=== PATIENT | female | born 1975 | race American Indian/Alaskan Native ===

== ENCOUNTER 2016-10-03 19:04 | Emergency (ER) | payer BC ==
[2016-10-03] MEDS ORDERED: DELTASONE PO ONE (22:26)
[2016-10-03] MEDS ORDERED: TYLENOL PO ONE (22:26)
[2016-10-03] MEDS ORDERED: ROBITUSSIN PO ONE (22:26)
--- NOTE | 2016-10-03 22:30 | Emergency Department Report ---
HPI - General Chief Complaint: Upper Respiratory Infection Time Seen by Provider: 10/03/16 21:55 - HPI HPI: 40-year-old female presents ED complaining of throat pain, petechial mucus productive cough and stuffy nose 6 days. Patient states symptoms started 6 days ago and has gotten progressively worse. Patient states she is coughing intermittently day and night. Patient states she had 2 episodes of vomiting 2 days ago from coughing so much. Patient states she sometimes had difficulty breathing through her nose due to stuffy nose. Patient thinks she has had a fever but is unsure if she did not measure. Patient has not taken any medication for symptoms but she states she was recently diagnosed with high blood pressure and takes a blood pressure medication daily cannot recall the name. Patient denies fevers/chills/nausea/vomiting/abdominal pain/chest pain/ shortness of breath/dizziness/headache or any other problems. ED Past Medical Hx - Past Medical History Hx Hypertension: Yes - Surgical History Additional Surgical History: , tubal ligation - Social History Smoking Status: Never Smoker Substance Use Type: None - Medications Home Medications: Home Medications Medication Instructions Recorded Confirmed Last Taken Type Acetamin/Codeine 120-12Mg/5 ml 5 ml PO TID PRN #80 ml 10/03/16 Unknown Rx [Tylenol/Codeine] Azithromycin [Zithromax] 250 mg PO DAILY #6 tablet 10/03/16 Unknown Rx Fluticasone [Flonase] 1 spray NS QDAY #1 bottle 10/03/16 Unknown Rx Prednisone [predniSONE 5 mg (6-Day 5 mg PO .TAPER #1 tab.ds.pk 10/03/16 Unknown Rx Pack, 21 Tabs)] ED Review of Systems ROS: Stated complaint: SORE THROAT/COUGHING/EARACHE/NECK PAIN Other details as noted in HPI Constitutional: denies: chills, fever Eyes: denies: eye pain, eye discharge, vision change ENT: throat pain. denies: ear pain, dental pain, hearing loss Respiratory: cough. denies: shortness of breath, wheezing Cardiovascular: denies: chest pain, palpitations, edema, syncope Endocrine: no symptoms reported Gastrointestinal: denies: abdominal pain, nausea, diarrhea Genitourinary: denies: urgency, dysuria, discharge Musculoskeletal: denies: back pain, joint swelling, arthralgia, myalgia Skin: denies: rash, lesions, pruritus Neurological: denies: headache, weakness, numbness, paresthesias, confusion Psychiatric: denies: anxiety, depression Hematological/Lymphatic: denies: easy bleeding, easy bruising Physical Exam - Physical Exam Vital Signs: Vital Signs 10/03/16 19:15 Temperature 99.1 F Pulse Rate 110 H Respiratory 20 Rate Blood Pressure 161/100 O2 Sat by Pulse 98 Oximetry Physical Exam: GENERAL: Alert and oriented x3, no apparent distress, Normal Gait, atraumatic. Intermittent coughing during exam HEAD: Head is normocephalic and a-traumatic. EYES: Extra ocular muscles are intact. Pupils are equal, round, and reactive to light and accommodation. EARS: symetrical, atraumatic, non tender, ear canal clear and moderate cerumen, tympanic membrance non inflamed. gross auditory nml bilaterally. NOSE: Nose symetrical, Nontender,Nares appeared normal. MOUTH:Mouth is well hydrated and without lesions. Tonsils nonerythematous or swollen, Uvula midline, Tongue elevated. Mucous membranes are moist. Posterior pharynx clear, no exudate or lesions. Patent airways. NECK: Supple. Non edematous, No carotid bruits. Anterior cervical lymphadenopathy. Tender to palpation of cervical lymph nodes. LUNGS: Symetrical with respiration, No wheezing, no rales or crackles, CTAB. HEART: S1, S2 present, regular rate and rhythm without murmur, no rubs, no gallops. ABDOMEN: No organomegaly was noted,Positive bowel sounds, soft, and non- distended. . Nontender to palpation on all Quadrants, NO CVA tenderness. NEUROLOGIC: No focal Deficit, Cranial nerves II through XII are grossly intact. No loss of sensation, SKIN: Warm and dry, No lesions, No ulceration or induration present. ED Course Vital Signs 10/03/16 19:15 Temperature 99.1 F Pulse Rate 110 H Respiratory 20 Rate Blood Pressure 161/100 O2 Sat by Pulse 98 Oximetry ED Medical Decision Making - Medical Decision Making 40-year-old female presents with pharyngitis/upper respiratory infection ED course: Patient received Robitussin, Tylenol and prednisone ED. Patient received clonidine 0.1 to reduce pressure. Discussed with patient had symptomatic relief with medication given for home. Discussed the patient will follow-up with primary care physician. Discussed home antibiotic treatment for 5 days. Discussed if worsening symptoms or new symptoms arise to return to ED. Discussed rest, plenty of fluids, vitamin C. Vital signs are stable. Pressure mildly decreased breath to discharge. Discussed to resume blood pressure meds this morning. Patient is in no acute distress. Critical care attestation.: If time is entered above; I have spent that time in minutes in the direct care of this critically ill patient, excluding procedure time. ED Disposition Clinical Impression: Pharyngitis Qualifiers: Pharyngitis/tonsillitis etiology: unspecified etiology Qualified Code(s): J02.9 - Acute pharyngitis, unspecified URI (upper respiratory infection) Qualifiers: URI type: unspecified URI Qualified Code(s): J06.9 - Acute upper respiratory infection, unspecified Disposition: DISCHARGED TO HOME OR SELFCARE Is pt being admited?: No Does the pt Need Aspirin: No Condition: Stable Instructions: Pharyngitis (ED), Upper Respiratory Infection (ED) Prescriptions: Acetamin/Codeine 120-12Mg/5 ml [Tylenol/Codeine] 5 ml PO TID PRN #80 ml PRN Reason: Pain Azithromycin [Zithromax] 250 mg PO DAILY #6 tablet Fluticasone [Flonase] 1 spray NS QDAY #1 bottle Prednisone [predniSONE 5 mg (6-Day Pack, 21 Tabs)] 5 mg PO .TAPER #1 tab.ds.pk Referrals: PRIMARY CARE, [Primary Care Provider] - 3-5 Days Forms: Work/School Release Form(ED) Time of Disposition: 22:51
[2016-10-03] MEDS ORDERED: MAGIC MOUTHWASH PO ONE (22:35)
[2016-10-03] MEDS ORDERED: CATAPRES ONE (23:09)
[2016-10-03] MEDS ORDERED: CATAPRES PO ONE (23:16)
[2016-10-03 23:18] VITALS: BP 158/106
== END 2016-10-03 23:18 | disposition home or self-care (01) ==
LOC: ED 19:04
DX: J20.9 Acute bronchitis, unspecified (principal); J06.9 Acute upper respiratory infection, unspecified; I10 Essential (primary) hypertension
CPT/HCPCS: 99282; J7512